=== PATIENT | male | born 1985 | race Caucasian/White ===

== ENCOUNTER 2016-06-08 13:22 | Emergency (ER) | payer SELFPAY ==
[2016-06-08 13:34] VITALS: RESP 18
[2016-06-08] MEDS ORDERED: NS 1,000 ML IV ONE (13:34)
[2016-06-08] MEDS ORDERED: DEXAMETHASONE 10 MG/ML VIAL IVP ONE (13:34)
[2016-06-08] MEDS ORDERED: KETOROLAC 30 MG/1 ML SDV IVP ONE (13:34)
[2016-06-08] MEDS ORDERED: DEXAMETHASONE 10 MG/ML VIAL ONE (13:35)
[2016-06-08] MEDS ORDERED: HYDROmorphONE/DILAUDID 1 MG/ML SYR IVP ONE (13:35)
[2016-06-08] MEDS ORDERED: KETOROLAC 30 MG/1 ML SDV ONE (13:35)
--- NOTE | 2016-06-08 13:50 | EDPHY ---
H & P Time Seen by Provider: 06/08/16 13:26 HPI/ROS: HPI Sore throat, fever. 30-year-old male by private vehicle. This patient is visiting the area from [place]. He is from [facility]. He is to return to [facility] on Saturday. He reports 5 days of fever and worsening sore throat. He was seen at the [facility] on Saturday. His influenza was negative. His rapid strep +strep culture was negative. He presents with continued symptoms of sore throat worse with swallowing. ROS: Constitutional: As above, no chills. No weakness. Eyes: No discharge. No changes in vision. ENT: As above. No nasal congestion or rhinorrhea. Respiratory: No cough. No shortness of breath. Cardiac: No chest pain, no palpitations. Gastrointestinal: No abdominal pain, no vomiting, no diarrhea. Genitourinary: No hematuria. No dysuria or increased frequency with urination. Musculoskeletal: No back pain. No neck pain. No myalgias or arthralgias. Skin: No rashes. Neurological: No headache. No focal weakness or altered sensation. Past medical history: He denies any significant past medical history. He is immunized. Social history: Nonsmoker. As above. Physical Exam: General Appearance: Alert, no distress. This patient is responding to questions appropriately and in full sentences. This patient appears well- hydrated and well-nourished. No voice changes. Eyes: Pupils equal and round no pallor or injection. No lid edema, erythema or injection. ENT, Mouth: Mucous membranes are moist. Pharyngeal erythema and edema with white exudates over posterior pharynx and tonsillar pillars. No asymmetry to suggest abscess. No stridor on auscultation of his neck. Respiratory: There are no retractions, lungs are clear to auscultation with good air movement bilaterally. Cardiovascular: Regular rate and rhythm. No murmur. Neurological: Motor sensory function is grossly intact. Cranial nerves are normal. Gait is normal. Skin: Warm and dry, no rashes. Musculoskeletal: Neck is supple and nontender. Mild anterior upper cervical and submandibular lymphadenopathy. Extremities are symmetrical. All joints range without pain or impingement. Psychiatric: No agitation. No depression. Database: EKG: Imaging: Procedures: Emergency department course: IV placed. He was started on IV normal saline with 1 L to be given over 1 hour. Presumptive diagnosis is a viral pharyngitis, likely mononucleosis. He denies any prior history of kidney dysfunction or contraindications to NSAIDs. He was given 30 mg of IV Toradol and 10 mg of IV Decadron. He declined narcotic pain medication. 2:10 p.m., patient re-evaluated. Resting comfortably at this time. He reports decreased pain and is having an easier time swallowing. Results of his Monospot test discussed with him. This was negative. I discussed the possibility of a streptococcal pharyngitis although my feeling is this is likely of viral etiology. He has no contraindications to penicillins. After discussion with him we decided to treat with IM penicillin. He was given 1.2 million units of IM pen G LA. 2:30 p.m., patient resting comfortably. No voice changes. No stridor. Swallowing liquids without difficulty. He feels comfortable being discharged and I feel he is safe for discharge. Plan will be to treat him with high-dose ibuprofen for the next 3 days, a 1 time repeat dose of Decadron tomorrow and Vicodin as needed for further pain control. He is in agreement. Return to emergency department precautions discussed. Follow-up reviewed. All of his questions were answered. He was discharged in good condition. Differential Diagnosis: The differential diagnosis on this patient includes but is not limited to viral exudate of pharyngitis, mononucleosis. Retropharyngeal abscess, peritonsillar abscess, tracheitis, epiglottitis unlikely. This represents a partial list of diagnoses considered. These considerations are based on history, physical exam , past history, reassessment and diagnostic testing. Smoking Status: Never smoked Constitutional: Initial Vital Signs Temperature (C) 39.0 C H 06/08/16 13:32 Heart Rate 108 H 06/08/16 13:32 Respiratory Rate 18 06/08/16 13:32 Blood Pressure 148/89 H 06/08/16 13:32 O2 Sat (%) 93 06/08/16 13:32 O2 Delivery Mode Room Air Allergies/Adverse Reactions: No Known Allergies Allergy (Unverified 06/08/16 13:34) Home Medications: Medication Instructions Recorded Dexamethasone [Decadron 4 MG (RX)] 12 mg PO ONCE #3 tab 06/08/16 Hydrocodone/APAP 5/325 [Darrington 1 - 2 tab PO Q4-6PRN PRN #10 tab 06/08/16 5/325 (*)] Medical Decision Making - Data Points Laboratory Results: 06/08/16 13:41 Monoscreen NEGATIVE (NEGATIVE) Medications Given: Discontinued Medications Dexamethasone (Decadron Injection) 10 mg IVP EDNOW ONE Stop: 06/08/16 13:35 Last Admin: 06/08/16 13:57 Dose: 10 mg Hydromorphone HCl (Dilaudid) 0.5 mg IVP EDNOW ONE Stop: 06/08/16 13:36 Last Admin: 06/08/16 13:57 Dose: Not Given Sodium Chloride (Ns) 1,000 mls @ 0 mls/hr IV ONCE ONE PRN Reason: Wide Open Stop: 06/08/16 13:35 Last Admin: 06/08/16 13:56 Dose: 1,000 mls Ketorolac Tromethamine (Toradol) 30 mg IVP EDNOW ONE Stop: 06/08/16 13:35 Last Admin: 06/08/16 13:57 Dose: 30 mg Departure - Departure Disposition: Home, Routine, Self-Care Clinical Impression: Pharyngitis Condition: Good Instructions: Pharyngitis (ED) Additional Instructions: Read and follow provided instructions. Follow-up with your primary care physician in early next week when you return home to [facility]. Ibuprofen dosin mg every 6 hours with meals for the next 3 days only. Darrington/Percocet dosin-2 every 4-[address] not drive on this medication. 1 time dose of Decadron, 12 mg, to be taken tomorrow afternoon. Return to the emergency department for worsening sore throat, difficulty swallowing, voice changes, difficulty breathing, stridor or other serious concerns. Referrals: NONE *PRIMARY CARE P,. [Primary Care Provider] - As per Instructions Prescriptions: Dexamethasone [Decadron 4 MG (RX)] 12 mg PO ONCE #3 tab Hydrocodone/APAP 5/325 [Darrington 5/325 (*)] 1 - 2 tab PO Q4-6PRN PRN #10 tab PRN Reason: Pain, Moderate
[2016-06-08] MEDS ORDERED: BICILLIN L-A 1200000 UNIT/2 ML SYRINGE IM ONE (14:13)
[2016-06-08] MEDS ORDERED: HYDROCOD/APAP 5/325 PREPACK#6 BTL TAKEHOME ONE (14:28)
[2016-06-08 14:51] VITALS: BP 113/63; PULSE 89; TEMP 98.4; O2SAT 96
== END 2016-06-08 14:47 | disposition home or self-care (01) ==
DX: J02.9 Acute pharyngitis, unspecified (principal)
CPT/HCPCS: 96374; J0561; J1170; J1885